=== PATIENT | female | born 1990 | race Caucasian/White ===

== ENCOUNTER 2018-03-04 07:47 | Emergency (ER) | payer OTHER ==
--- NOTE | 2018-03-04 08:18 | ED Physician Documentation ---
Upper Respiratory Symptoms - HPI Stated Complaint: cough Chief Complaint: Upper Respiratory Symptoms Additional Information: Pt presents to the ED via POV c/o cough, congestion, malaise x 10 days, progressively worsening. denies other symptoms or complaints. pt denies current chest pain, dyspnea, syncope/near syncope, headache, dizziness, visual disturbances, n/v/d, fever/chills, rash, sick contacts, dysuria, trauma. melena or hematochezia, bleeding or easy bruising, change in bowel or bladder function. anxiety or depression. ROS Negative unless otherwise specified. - ROS CONST/EYES: weakness - PAST HX Lung Disease: none Surgeries/Procedures: none Allergies/Adverse Reactions: Allergies Allergy/AdvReac Type Severity Reaction Status Date / Time No Known Allergies Allergy Verified 03/04/18 08:10 Home Medications: Ambulatory Orders Medication Instructions Recorded NK 07/19/12 - SOCIAL HX Smoking History: non-smoker Alcohol Use: none Drug Use: none - FAMILY HX Family History: none - VITAL SIGNS Vital Signs: Vital Signs Temp Pulse Resp BP Pulse Ox 98.4 F 100 H 14 112/70 99 03/04/18 07:53 03/04/18 08:29 03/04/18 08:29 03/04/18 08:29 03/04/18 08:29 - REVIEWED ASSESSMENTS Nursing Assessment Reviewed: Yes Vitals Reviewed: Yes Upper Respiratory Symptoms - EXAM General Appearance: no acute distress, alert EENT: eyes nml inspection, lids & conjunct. nml, PERRL, ear nml, purulent nasal drainage, pharynx nml, airway nml Neck: normal inspection, thyroid normal Respiratory: no resp. distress, breath sounds nml, no pain on inspiration, speaks full sentences, no pleuritic chest pain Abdomen: non-tender, no organomegaly, nml bowel sounds, no distention CVS: reg rate & rhythm, heart sounds normal, equal pulses, no murmur, no gallop, PMI nml, no JVD, no friction rub, 24 Skin: color nml, no rash, warm,dry Extremities: non-tender, normal range of motion, no evidence of injury, no edema, J, [employer] Neuro/Psych: oriented x3, neuro intact, mood/affect nml Discharge Clincal Impression: URI (upper respiratory infection) Qualifiers: URI type: unspecified URI Qualified Code(s): J06.9 - Acute upper respiratory infection, unspecified Additional Instructions: Rest. no work for 3 days. Prednisone 5 mg taper once daily as directed Azithromycin 250 MG 2 tab day one. One tab days 2-5. keeps working days 6-10 Tessalon Perlhermelinda take one tab 3 times a day as needed for cough. May use over the counter cough syrup in between doses. seek medical care immediately if difficult to wake, difficulty breathing, feeling faint or fainting, increased rash, chest pain, shortness of breath, or fever not controlled by tylenol/motrin or any concern. follow up with primary care next week or before if not improving as expected. PLEASE UNDERSTAND THAT THIS IS AN EMERGENCY EVALUATION FOR YOUR COMPLAINT AND BY NATURE IS LIMITED AND NOT A SUBSTITUTE FOR ONGOING MEDICAL CARE. EVEN THOUGH TEST RESULTS AND TREATMENT PLAN WERE EXPLAINED THERE MAY BE A NEED FOR ADDITIONAL TESTING TO FULLY DETERMINE THE EXTENT OF YOUR ILLNESS/INJURY/OR CONCERN SO YOU SHOULD CONTACT AND OR ESTABLISH WITH A PRIMARY CARE PROVIDER (OR REFERRAL DOCTOR IF APPLICABLE) FOR AN APPOINTMENT SOON POSSIBLE. Condition: Good Disposition: 01 HOME, SELF-CARE Decision to Admit: NO Date of Decison to Admit: 03/04/18 Decision Time: 08:13
[2018-03-04 08:31] VITALS: BP 112/70
== END 2018-03-04 08:29 | disposition home or self-care (01) ==
LOC: ED 07:47
DX: J06.9 Acute upper respiratory infection, unspecified (principal)
CPT/HCPCS: 99281; 99282

== ENCOUNTER 2018-05-14 17:49 | Emergency (ER) | payer SELFPAY ==
[2018-05-14] MEDS ORDERED: MAGNESIUM SULFATE 2 GM in DEXTROSE 5 % IN WATER 100 ML IV STA ×2 (18:36)
[2018-05-14] MEDS ORDERED: KETOROLAC TROMETHAMINE 30 MG/1ML VIAL IVP ONE (18:36)
[2018-05-14] MEDS ORDERED: ONDANSETRON HCL/PF 4 MG/ 2ML VIAL IVP ONE (18:36)
[2018-05-14] MEDS ORDERED: DEXAMETHASONE SODIUM PHOSPHATE 10 MG/ML VIAL IV ONE (18:36)
[2018-05-14] MEDS ORDERED: 0.9 % SODIUM CHLORIDE 1,000 ML IV ONE (18:39)
--- NOTE | 2018-05-14 18:50 | ED Physician Documentation ---
Headache - HISTORIAN Historian: patient - HPI Stated Complaint: Headache Chief Complaint: Headache Additional Information: Patient presents to ED with a 24 hour history of left sided headache. She states she has a history of migraines but has not had one a long time. She states she has not taken any meds for it because she doesnt have any and cannot afford to buy even ibuprofen. Onset: hours (24) Timing: gradual New Gradual Onset: Yes Exposure To: none Severity: moderate Quality: similar to previous, sharp, pounding Associated Symptoms: denies: fever Preceding Symptoms: typical of prior aura(s). denies: visual disturbance Exacerbated By: light, noise Further Comments: yes - ROS NEURO/PSYCH: denies: anxiety, depression EYES/ENT: denies: difficulty swallowing, sinus pain, drainage CVS/RESP: denies: chest pain, shortness of breath, cough GI/: denies: abdominal pain MS/SKIN/LYMPH: denies: muscle aches - PAST HX Medical History: no pertinent history Surgical History: no surgical history Allergies/Adverse Reactions: Allergies Allergy/AdvReac Type Severity Reaction Status Date / Time No Known Allergies Allergy Verified 05/14/18 18:13 Home Medications: Ambulatory Orders Medication Instructions Recorded NK 07/19/12 - SOCIAL HX Smoking History: non-smoker Alcohol Use: none Drug Use: none - Family HX Family History: none - VITAL SIGNS Vital Signs: Vital Signs Temp Pulse Resp BP Pulse Ox 98.4 F 83 16 107/56 99 05/14/18 17:49 05/14/18 17:49 05/14/18 17:49 05/14/18 17:49 05/14/18 17:49 - REVIEWED ASSESSMENTS Nursing Assessment Reviewed: Yes Vitals Reviewed: Yes Progress - Results/Orders Results/Orders: 1935 Patient refused Mag Sulfate, stating she did not want to wait so long. ED Results Lab/Radiology - Orders Orders: ED Orders Category Date Time Status Place IV Lock 1T Care 05/14/18 18:36 Active 0.9 % Sodium Chloride [Normal Saline] 1,000 ml Med 05/14/18 18:39 Discontinued IV Q1H Dexamethasone Sodium Phosphate [Decadron] Med 05/14/18 18:36 Discontinued 4 mg IV NOW ONE Ketorolac Tromethamine [Toradol] Med 05/14/18 18:36 Discontinued 30 mg IVP NOW ONE Magnesium Sulfate 2 gm Med 05/14/18 18:36 Discontinued Dextrose 5 % in Water [D5w] 100 ml IV NOW Ondansetron HCl/Pf [Zofran] Med 05/14/18 18:36 Discontinued 4 mg IVP NOW ONE Headache Physical Exam - EXAM General Appearance: no acute distress, alert EENT: eyes nml inspection, PERRL Neck: normal inspection, supple Respiratory: no resp distress, breath sounds normal CVS: reg. rate & rhythm, heart sounds nml Abdomen: non-tender, no distention Skin: color nml Extremitites: non-tender - NEURO/PSYCH Higher Functions: alert, oriented x3, nml speech, mood/affect nml Cranial: nml as tested, no evidence of acute CVA Cerebellar: nml as tested Sensorimotor: motor nml. denies: weakness Discharge Clincal Impression: Headache Referrals: Primary Doctor,No [Primary Care Provider] - 2 Days Additional Instructions: 1. Ibuprofen and/or Tylenol as needed for pain. Added caffeine is beneficial 2. Drink plenty of fluids to maintain proper hydration 3. Follow up with PCP within 1 week 4. Return to ER for new or worsening symptoms. Condition: Stable Disposition: 01 HOME, SELF-CARE Decision to Admit: NO Date of Decison to Admit: 05/14/18 Decision Time: 19:42
[2018-05-14 20:42] VITALS: BP 112/69
== END 2018-05-14 20:08 | disposition home or self-care (01) ==
LOC: ED 17:49
DX: R51 Headache (principal)
CPT/HCPCS: 96374; 96375; 99283; 99284; J1885; J2405; J7030; S1016

== ENCOUNTER 2018-10-16 19:07 | Emergency (ER) | payer OTHER ==
[2018-10-16 19:35] VITALS: BP 116/62
--- NOTE | 2018-10-16 19:47 | ED Physician Documentation ---
Female Urogenital Problems - HISTORIAN Historian: patient - HPI Stated Complaint: Increasing burning sensation with urination Chief Complaint: Female Urogenital Problems Additional Information: Patient presents to ED with a 2 day history of increased burning with urination. Patient also reports watery vaginal discharge with a sweet fishy odor with vulvular itching. Onset: days ago (2) Severity: mild Location of Pain: vulvar pain Further Comments: no - Vaginal Bleeding Sexual History: active Contraceptive: none - Associated Symptoms Urinary Symptoms: burning w/ urination. denies: frequent urination, urgency w/ urination - ROS CONST: none GI/: nausea. denies: diarrhea CVS/RESP: denies: chest pain, shortness of breath EYES/ENT: denies: problems with vision NEURO/PSYCH: denies: headache MS/SKIN/LYMPH: none - PAST HX Past History: none Other History: bladder infection, other (BV) Surgeries/Procedures: none Allergies/Adverse Reactions: Allergies Allergy/AdvReac Type Severity Reaction Status Date / Time No Known Allergies Allergy Verified 10/16/18 19:35 Home Medications: Ambulatory Orders Medication Instructions Recorded Fluconazole [Diflucan] 150 mg PO QD #1 tablet 10/16/18 metroNIDAZOLE [Flagyl] 500 mg PO BID 7 Days #14 tablet 10/16/18 - SOCIAL HX Smoking History: non-smoker Alcohol Use: none Drug Use: none - FAMILY HX Family History: none - VITAL SIGNS Vital Signs: Vital Signs Temp Pulse Resp BP Pulse Ox 98.5 F 94 H 14 116/62 98 10/16/18 19:08 10/16/18 19:08 10/16/18 19:08 10/16/18 19:08 10/16/18 19:08 - REVIEWED ASSESSMENTS Nursing Assessment Reviewed: Yes Vitals Reviewed: Yes Female Urogenital Problems - EXAM General Appearance: no acute distress, alert EENT: LESLY Respiratory: no resp. distress, breath sounds nml CVS: reg rate & rhythm, heart sounds normal Abdomen: soft, non-tender, no distention, tenderness Pelvic: deferred Back: non-tender. No: CVA tenderness Skin: color nml, no rash, warm,dry Extremities: non-tender Neuro: oriented X3, motor nml, sensation nml, mood/affect nml Discharge Clincal Impression: Bacterial vaginosis Prescriptions: Fluconazole [Diflucan] 150 mg PO QD #1 tablet metroNIDAZOLE [Flagyl] 500 mg PO BID 7 Days #14 tablet Referrals: Primary Doctor,No [Primary Care Provider] - 2 Days Additional Instructions: 1. Take antibiotics until gone 2. Drink plenty of fluids to maintain proper hydration 3. Follow up with PCP within 1 week 4. Return to ER for new or worsening symptoms Condition: Stable Disposition: 01 HOME, SELF-CARE Decision to Admit: NO Date of Decison to Admit: 10/16/18 Decision Time: 20:05
[2018-10-16] MEDS ORDERED: metroNIDAZOLE 500 MG TABLET PO ONE (20:03)
[2018-10-17 07:55] LABS: APPEARANCE,URINE CLEAR (CLEAR); COLOR,URINE YELLOW (YELLOW); OCCULT BLOOD,URINE 2+ (NEGATIVE); PH URINE 8.5 (5.0 - 8.0); URINE HCG NEGATIVE (NEGATIVE); UROBILINOGEN URINE 0.2 Eu (0.2-1.0)
== END 2018-10-16 20:10 | disposition home or self-care (01) ==
LOC: ED 19:07
DX: N76.0 Acute vaginitis (principal)
CPT/HCPCS: 81002; 81025

== ENCOUNTER 2018-11-13 15:11 | Emergency (ER) | payer OTHER ==
--- NOTE | 2018-11-13 15:18 | ED Physician Documentation ---
Low Back Pain - HISTORIAN Historian: patient - HPI Stated Complaint: low back pain after moving furniture Chief Complaint: Lower Extremity Problem History: back pain Onset: hours (4) Duration: continues in ED Recent Injury: No Context: other (moving furniture ) Where: home Other Injuries: back Severity: moderate (6-10) Quality: burning Associated Symptoms: denies: fever, chills, sweating, constipation, i ncontinence, nausea, vomiting, problems urinating, difficulty walking, light- headedness, dizziness, numbness, weakness Worsened By:: upright position, movement to LT flexion Relieved By: nothing Further Comments: yes (she reports she did move furniture and she felt a "pop" in her lower back and instantly had pain on lower back moving down the right side. She has increased pain when she puts pressure on that area or moving to the right. She has not tried any OTC Meds for pain and denies any loss of control of bowel or bladder) - ROS CONST: no problems - PAST HX Past History: other (none ) Surgeries/Procedures: Immunizations: UTD Allergies/Adverse Reactions: Allergies Allergy/AdvReac Type Severity Reaction Status Date / Time No Known Allergies Allergy Verified 11/13/18 15:22 Home Medications: Ambulatory Orders Medication Instructions Recorded NK 11/13/18 - SOCIAL HX Smoking History: non-smoker Alcohol Use: none Drug Use: none - FAMILY HX Family History: none - VITAL SIGNS Vital Signs: Vital Signs Temp Pulse Resp BP Pulse Ox 97.6 F 91 H 20 115/47 99 11/13/18 15:15 11/13/18 15:15 11/13/18 15:15 11/13/18 15:15 11/13/18 15:15 - REVIEWED ASSESSMENTS Nursing Assessment Reviewed: Yes Vitals Reviewed: Yes Progress - Progress Progress: 1600: discussed results and plan she is agreeable DG ED Results Lab/Radiology - Radiology Radiology Impressions: Examination: Plain film lumbar spine History: PT STATES PAIN IN LOWER BACK AFTER MOVING FURNITURE Findings: 3 views of the lumbar spine demonstrate normal height. No anterior compression. No soft tissue abnormalities. Impression: No acute osseous process. Electronically signed on Nov 13, 2018 3:47:21 PM CDT by: Jason Wilkinson - Orders Orders: ED Orders Category Date Time Status LUMBAR SPINE XR 2 OR 3 VIEWS [L SPINE 2 OR 3 VIEWS] [ Exams 11/13/18 Completed RAD] Stat Ketorolac Tromethamine [Toradol] Med 11/13/18 16:01 Once 60 mg IM NOW ONE Low Back Pain/Injury - Physical Exam General Appearance: no acute distress, alert EENT: eye inspection normal, no signs of dehydration Neck: non-tender, painless ROM Resp/CVS: chest non-tender, breath sounds nml, heart sounds nml, no resp. distress, lungs clear, reg. rate & rhythm Abdomen: non-tender Back: muscle spasm Neuro/Psych: oriented x3 Skin: warm/dry Extremities: non-tender, normal range of motion, no evidence of injury, no edema Discharge Clincal Impression: Low back pain Qualifiers: Chronicity: acute Back pain laterality: right Sciatica presence: with sciatica Sciatica laterality: sciatica of right side Qualified Code(s): M54.41 - Lumbago with sciatica, right side Referrals: Primary Doctor,No [Primary Care Provider] - 2 Days Comments: 1. Flexeril 10 mg take 1 by mouth every 8 hours as needed for pain 2. Prednisone 20 mg take 1 by mouth daily x 5 days 3. Ice/Heat as needed for pain 4. OTC meds as needed for pain as directed 5. Follow up with PCP in 2 days 6. Return to ER for any increasing concerns Condition: Stable Disposition: 01 HOME, SELF-CARE Decision to Admit: NO Date of Decison to Admit: 11/13/18 Decision Time: 16:08
--- NOTE | 2018-11-13 15:57 | Diagnostic Imaging Report ---
RAPHAEL GALINDO [facility] [address] [facility] [address] [place], [place]. [address] Report Submission Date: Nov 13, 2018 3:47:21 PM CDT Patient Study Name: BERNICE LEÓN Date: Nov 13, 2018 3:21:39 PM CDT Modality Type: DX Gender: F Description: L SPINE 2 OR 3 VIEWS : 89 Institution: [facility] Physician: RAPHAEL GALINDO Examination: Plain film lumbar spine History: PT STATES PAIN IN LOWER BACK AFTER MOVING FURNITURE Findings: 3 views of the lumbar spine demonstrate normal height. No anterior compression. No soft tissue abnormalities. Impression: No acute osseous process. Electronically signed on Nov 13, 2018 3:47:21 PM CDT by: Jason SAUCEDA
[2018-11-13] MEDS: KETOROLAC TROMETHAMINE 60 MG/2 ML VIAL IM ONE (16:05)
[2018-11-13 16:14] VITALS: BP 105/77
== END 2018-11-13 16:10 | disposition home or self-care (01) ==
LOC: ED 15:11
DX: M54.41 Lumbago with sciatica, right side (principal)
CPT/HCPCS: 72100; 96372; 99284; J1885